=== PATIENT | male | born 1965 | race Caucasian/White ===

== ENCOUNTER 2021-04-27 10:18 | Outpatient (CLI) | payer MEDICARE, SELFPAY ==
--- NOTE | 2021-04-28 20:42 | ONC CON_ITS ---
Dr. Paz New Patient Note Patient: Guy Fair Unit #: [id number]: 1965 Dicatated By: Louis Paz M.D.Date of Visit: Apr 27, 2021 Onc MED New Patient/Consult Referring Physician: Dr. Bharat Paris M.D. Chief Complaint: Oropharyngeal cancer/non-small cell lung cancer. 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 During follow-up he had evidence of progression to stage IV (M1) with evidence of pulmonary metastatic disease. He also was determined to have primary adenocarcinoma involving the lower lobe of the left lung. He underwent treatment for the base of tongue cancer at the [facility], [place] in [place]. He was treated on a clinical trial with definitive chemoradiation utilizing high-dose cisplatin in combination with avelumab, beginning on 09/17/2017. He did complete the full course of radiation on 11/06/2017. It is unclear how much systemic therapy received during the radiation, but he failed to receive any further systemic therapy after the radiation was completed. Restaging PET/CT in January 2018 showed residual PET activity in the head and neck, SUV 4.2. A 1.3 cm left lower lobe nodule appeared stable with SUV 1.4. A repeat PET/CT on 05/20/2018 showed SUV 5.3 at the base of tongue and development of innumerable lung nodules, the largest on the right measuring 1.2 cm and with the left lower lobe lesion increased from 1.3 to 1.6 cm. Navigational bronchoscopy on 08/02/2018 showed adenocarcinoma in the left lower lobe lung lesion. As of August 2018 he transferred his care to the [facility] in [facility]. A CT-guided biopsy of a right lung nodule on 11/13/2018 showed squamous cell carcinoma. The tumor was found to have positive PD-L1 expression at 40%. He then began second line immunotherapy with pembrolizumab. As of his follow-up in September 2019 his restaging PET/CT showed continued hypermetabolic activity but without obvious disease progression. He continued treatment with pembrolizumab. His PET/CT in December 2019 showed increased mediastinal adenopathy and increase in size of lung nodules, consistent with disease progression. At that point, the decision was made to add chemotherapy with carboplatin/pemetrexed and to continue the pembrolizumab. He had significant chemotherapy related nausea/vomiting and as of March 2020 he opted to stop treatment. He restarted the pembrolizumab in July 2020. A repeat PET/CT on 09/06/2020 showed progressive hypermetabolic mediastinal adenopathy with increased in the size, number, and FDG Affinity. There was increased prominence of hypermetabolic left hilar adenopathy and a pleural-based left upper lobe lesion also appeared more prominent. Several hypermetabolic pulmonary nodules scattered throughout the right lung and in the left lower lobe were noted to be increasingly prominent and increasingly FDG avid. Overall, the findings were consistent with disease progression. At his follow-up visit there on 09/15/2020 the possibility of continuing further chemotherapy with Taxotere in combination with pembrolizumab was discussed. He opted not to attempt further treatment at that time, and he had subsequently moved back to this area. He is seen now for further management of the head/neck and lung cancers. He complains that he is tired all the time and that he hurts all the time. He has limited activity. His ECOG score is 2. He has poor appetite and he has been losing weight. He does not have fever or night sweats. He says he always has sinus drainage and he complains that he coughs all the time. He brings up clear or yellowish colored sputum. He also has sore throat and hoarseness. He is short of breath with activity. He tends to have nausea in the mornings and he also has some acid reflux. He has ongoing problems with constipation. He has no complaints. He has significant pain in the area of his left shoulder blade and also in the left upper chest area. He also reports having intermittent episodes of sharp shooting pain down the lateral aspect of his right leg. He has muscle cramping in his legs and feet, especially at night. He does not complain of headache or dizziness. He sometimes has numbness in his left hand. Past Medical History: He has a history of base of tongue cancer and lung cancer. His other medical history includes chronic obstructive pulmonary disease, degenerative arthritis, depression, gastroesophageal reflux disease, gout, hypertension, and hypothyroidism. He also has a history of diverticulitis. Past Surgical History: His surgical/procedural history includes PEG tube placement, Port-A-Cath placement, biopsy of right lower lobe lung nodule in 2019, bronchoscopy in 2018, and direct laryngoscopy in 2017. Medications: Colon Cleanse 1 Capsule Oral daily, Docusate Sodium 1 (100 mg) Tablet Oral four times a day, Levothyroxine Sodium 1 (25 mcg) Tablet Oral every am, Morphine Sulfate 1 (15 mg) Tablet Oral q 4 to 6 hours PRN, Morphine Sulfate ER 1 (30 mg) Tablet, controlled release Oral q 12 hours, Ondansetron HCl 1 (4 mg) Tablet Oral q 4 hours, Pantoprazole Sodium 1 (40 mg) Tablet, enteric coated Oral daily Allergies: Shrimp Social History: Mr. Fair is single. He has history of smoking for 45 years, previously up to 2 packs of cigarettes daily. He currently smokes 1 pack/day. He has had alcohol use in the past, but not heavy. He quit drinking in 2017. Family History: Father had heart disease and COPD. He age 75. Mother of stroke at age 74. He has 4 brothers, 2 of whom have coronary artery disease. Review Of Symptoms: Constitutional - He complains that he is tired all the time. He has limited activity. Appetite is poor. He has had a recent weight loss of 15 pounds. He does not have fever or night sweats. ECOG score is 2, Eyes - No change in vision, ENMT - No hearing loss or tinnitus. He has sinus drainage and sore throat. He has persistent hoarseness and he has some difficulty swallowing, Hematologic/Lymphatic - No abnormal bruising or bleeding, Respiratory - He has shortness of breath. He coughs all the time. He brings up clear or yellowish sputum. No pleuritic pain or hemoptysis, Cardiovascular - He has chest pain. No palpitations, Gastrointestinal - He has nausea in the mornings and he has having some acid reflux. He has constipation. No blood in the stool or black stools, Genitourinary (M) - No dysuria or hematuria. No urinary frequency. No urgency or incontinence, Musculoskeletal - He is having pain in the area of his left shoulder blade and left upper chest. He also has joint pain and back pain. He also reports having muscle cramps in his legs and feet, especially at night, Neurologic - No headache or dizziness. He has some numbness in his left hand. No other focal neurologic symptoms, Psychiatric - He has depression. He is having difficulty sleeping. Vital Signs: Performed on Apr 27, 2021 11:19: 7, 6, 16.10 (LOW), 1.61 sq.m, 69.5 in, 98 %, 77 /min, 20 /min, 114/76 mm(hg), 97.8 F (LOW), and 110.6 lbs (HIGH). Physical Examination: Constitutional - He appears generally weak and chronically ill, Eyes - Sclerae nonicteric. Conjunctivae clear, ENMT - No lesions noted in the oral cavity, Neck - There is some induration in the neck. There is no mass or thyromegaly noted, Hematologic/Lymphatic - No cervical, clavicular, or axillary adenopathy, Respiratory - Lungs show diminished air movement bilaterally, Cardiovascular - Heart rhythm is regular. There is no murmur, gallop, or rub noted, Abdomen - Soft and non-tender. Liver and spleen are not enlarged. There is no abdominal mass or ascites noted and there is no inguinal adenopathy, Back/Spine - No spine or CVA tenderness noted, Extremities - No edema, Integumentary - No rashes. No suspicious skin lesions noted, Neurologic - No focal neurologic deficits noted. Problem List: 1. P16 positive squamous cell carcinoma involving the base of tongue, by clinical evaluation stage III (T3, N2, M0) at initial diagnosis in August 2017. He had subsequent progression to stage IV (M1) with biopsy-proven pulmonary metastatic disease. 2. Adenocarcinoma involving the lower lobe of the left lung, diagnosed by FNA biopsy in July 2018. 3. COPD. 4. Hypertension. 5. Hypothyroidism. 6. GERD. 7. History of diverticulitis. Problems Addressed with this Encounter and Plan: 1. Patient with P16 positive squamous cell carcinoma involving the base of tongue, by clinical evaluation stage III (T3, N2, M0) at initial diagnosis in August 2017. He underwent definitive chemoradiation utilizing high-dose cisplatin with avelumab for chemosensitization. He completed radiation on 11/06/2017. He was found to have adenocarcinoma involving the lower lobe of the left lung, diagnosed by FNA biopsy in July 2018. He was then found to have progression of the base of tongue cancer to stage IV (M1) with biopsy-proven metastatic squamous cell carcinoma in a right lung nodule in November 2018. It was determined to be PD-L1 positive at 40%. He began on immunotherapy with pembrolizumab. During followup his disease remained stable until December 2019, at which point carboplatin/premetrexed chemotherapy was added to his regimen. He stopped treatment in March 2020 due to side effects, mainly nausea/vomiting. He restarted pembrolizumab in July 2020. As of September he stopped treatment with PET/CT evidence of disease progression. He has since then been showing gradual decline in his performance status. He has significant cancer-related pain. His further treatment options are very limited as the likelihood of benefit with further chemotherapy is extremely low. As such, he prefers now to just continue with symptomatic/supportive care measures. I discussed the possibility of hospice referral, and he is agreeable. He will need adjustments to his pain regimen, as his current treatment is inadequate. At this point I would like to try transitioning him to a fentanyl patch. I also would like to try adding prednisone in a low dosage. He also will need to be started on a bowel regimen. Further adjustments can be made as needed. Signed By: Louis Paz M.D. <<Signature on File>>
== END 2021-04-27 10:19 | disposition home or self-care (01) ==
LOC: ONCMED 10:24
PROVIDERS: PCP Physician Assistant Medical; Visit Provider Internal Medicine Medical Oncology
DX: C01 Malignant neoplasm of base of tongue (principal); C78.02 Secondary malignant neoplasm of left lung; J44.9 Chronic obstructive pulmonary disease, unspecified; I10 Essential (primary) hypertension; E03.9 Hypothyroidism, unspecified; K21.9 Gastro-esophageal reflux disease without esophagitis; Z87.19 Personal history of other diseases of the digestive system; Z92.21 Personal history of antineoplastic chemotherapy; Z92.3 Personal history of irradiation
CPT/HCPCS: 99205